=== PATIENT | female | born 1985 | race Caucasian/White ===

== ENCOUNTER 2020-06-16 20:00 | Emergency (ER) | payer OTHER, SELFPAY ==
--- NOTE | ~2020-06-16 | CT_ITS ---
EXAMINATION: CT abdomen pelvis w con INDICATION: Right upper quadrant pain TECHNIQUE: Computed tomographic images of the abdomen and pelvis were obtained after the administrati on of 100 cc of Omnipaque 350 intravenous contrast. The dose-length product (DLP) was 188.82 mGy-cm. Automated exposure control and iterative reconstruction technique were employed. COMPARISON: None available FINDINGS: The lung bases are clear. The heart size is normal. There is a 2 cm cyst of the left hepati c lobe. Hemangiomas of the right hepatic lobe measure up to 2.2 cm. The spleen, pancreas, gallbladder , and adrenal glands are normal. A 6 mm hypoattenuating lesion of the right kidney is too small to ch aracterize but likely represents a cyst. The left kidney is unremarkable. No pathologically enlarged abdominal or pelvic lymph nodes are identified. There is no free intraperitoneal gas or evidence of b owel obstruction. The appendix is normal. An IUD is present in the uterus in expected position. IMPRESSION: 1. No CT correlate for the patient's symptoms. Reviewed, dictated and finalized at location [facility]. [employer]
[2020-06-16 20:03] VITALS: BP 137/92; PULSE 93; RESP 18; TEMP 35.7; O2SAT 99
[2020-06-16 20:18] LABS: Basophils Absolute Auto 0.1 K/mm3 (0.0-0.1); Basophils Percent Auto 0.8 % (0.2-1.2); Eosinophils Absolute Auto 0.1 K/mm3 (0-0.3); Eosinophils Percent Auto 1.1 % (0-4.4); Hematocrit 39.2 % (37.0-47.0); Hemoglobin 12.9 g/dL (12.0-15.0); Immature Granulocyte Absolute 0.02 K/mm3 (0.00-0.031); Immature Granulocyte Percent A 0.3 % (0-0.5); Lymphocytes Absolute Auto 1.79 K/mm3 (0.9-3.2); Lymphocytes Percent Auto 27.1 % (18.3-44.2); Mean Corpuscular HGB Conc 32.9 g/dl (32-36); Mean Corpuscular Hemoglobin 31.5 pg (26-34); Mean Corpuscular Volume 95.6 fl (80-100); Mean Platelet Volume 10.3 fl (7.4-10.4); Monocytes Absolute Auto 0.7 K/mm3 (0.1-0.6); Monocytes Percent Auto 11.1 % (2.6-8.5); Neutrophils Absolute Auto 3.9 K/mm3 (1.3-6.7); Neutrophils Percent Auto 59.6 % (45.5-73.1); Platelet Count Result 285 k/mm3 (150-375); Red Cell Distribution Width 12.7 % (11.5-14.5); White Blood Count 6.6 K/mm3 (4.5-10.0)
[2020-06-16 22:03] LABS: Alanine Aminotransferase 11 U/L (4-35); Albumin Level 4.1 g/dL (3.5-5.1); Alkaline Phosphatase 44 U/L (38-126); Anion Gap 5 mmol/L (8-16); Aspartate Amino Transferase 23 U/L (14-36); Bilirubin,Total 0.5 mg/dL (0.2-1.3); Blood Urea Nitrogen 12 mg/dL (7-17); Calcium 8.8 mg/dL (8.4-10.2); Carbon Dioxide 28 mmol/L (22-30); Chloride 105 mmol/L (98-107); Estimated CRCL calculation 59 ml/min; Estimated Glomerular Filt Rate > 60; Glucose 83 mg/dL (65-105); Lipase 92 U/L (23-300); Potassium 3.8 mmol/L (3.4-5.0); Sodium 138 mmol/L (137-145)
--- NOTE | 2020-06-16 22:48 | ED.GENADULT ---
HPI - General Adult General Chief complaint: Abdominal Pain Stated complaint: abd pain Time Seen by Provider: 06/16/20 21:27 History of Present Illness HPI narrative: Patient is a 34-year-old female who presents ER with upper abdominal pain. Ongoing intermittently over the last week. [place] like hunger pains in the epigastrium initially that would worsen when she would eat. She has tried omeprazole over the last day without relief and had no relief with Tums last night. She gets some nausea associate with her pain. No radiation of the pain. Has history of gallbladder sludge during her in the past. No fevers or chills or sweats. Related Data Allergies Allergy/AdvReac Type Severity Reaction Status Date / Time escitalopram Allergy Severe CHEST PAIN. Verified 03/10/19 19:15 cephalexin AdvReac Severe DIARRHEA Verified 03/10/19 19:15 Review of Systems Review of Systems: All systems reviewed & are unremarkable except as noted in HPI and below Constitutional: Constitutional: Denies chills, Denies fever(s) and Denies weakness Gastrointestinal: Gastrointestinal: Reports abdominal pain, Reports heartburn, Denies diarrhea, Reports nausea and Denies vomiting Genitourinary: Genitourinary: Denies nocturia, Denies dysuria and Denies flank pain PMFSH Past Medical History Medical History (Updated 06/17/20 @ 00:21 by Lenin Le MD) Anemia Anxiety Arthritis Asthma Chronic back pain Eczema Finger fracture, left GERD (gastroesophageal reflux disease) Hypothyroid IBS (irritable bowel syndrome) IUD (intrauterine device) in place Nasal bone fracture Surgical History Surgical History (Updated 03/10/19 @ 19:25 by Linda Kelley) History of lumpectomy History of nasal surgery Social History Social History (Updated 03/10/19 @ 19:25 by Linda Kelley) Smoking status: Never smoker Exam Narrative: Exam Narrative: GENERAL: Well-appearing, well-nourished, and in no acute distress. HEAD: Normocephalic, atraumatic. CHEST: Clear to auscultation. No respiratory distress. HEART: Regular rate and rhythm. Normal peripheral pulses. ABDOMEN: Soft, right upper quadrant tenderness with Lane sign, nondistended. EXTREMITIES: Normal range of motion. No edema. SKIN: Warm, dry, no rash. NEURO: Alert and oriented x3. PSYCH: Normal mood and affect. Course Course Emergency Course: Patient resting comfortably. Informed of results. Recommend Protonix twice daily in case she is developing an ulcer. Recommend follow-up with PCP with possible outpatient ultrasound for further evaluation gallbladder. Low-fat diet at home. Vital Signs Vital signs: Vital Signs Temperature 96.2 F L 06/16/20 20:03 Pulse Rate 93 06/16/20 20:03 Respiratory Rate 18 06/16/20 20:03 Blood Pressure 137/92 H 06/16/20 20:03 Pulse Oximetry 99 06/16/20 20:03 Temperature 96.2 F L 06/16/20 20:03 Pulse Rate 93 06/16/20 20:03 Respiratory Rate 18 06/16/20 20:03 Blood Pressure 137/92 H 06/16/20 20:03 Pulse Oximetry 99 06/16/20 20:03 Medical Decision Making Vital Signs Vital Signs: Vital Signs Temperature 96.2 F L 06/16/20 20:03 Pulse Rate 93 06/16/20 20:03 Respiratory Rate 18 06/16/20 20:03 Blood Pressure 137/92 H 06/16/20 20:03 Pulse Oximetry 99 06/16/20 20:03 Temperature 96.2 F L 06/16/20 20:03 Pulse Rate 93 06/16/20 20:03 Respiratory Rate 18 06/16/20 20:03 Blood Pressure 137/92 H 06/16/20 20:03 Pulse Oximetry 99 06/16/20 20:03 Lab Data Result diagrams: 06/16/20 20:12 06/16/20 21:40 Labs: Lab Results 06/16/20 06/16/20 06/16/20 Range/Units 20:12 21:40 23:49 WBC 6.6 (4.5-10.0) K/mm3 RBC 4.10 L (4.2-5.4) M/mm3 Hgb 12.9 (12.0-15.0) g/dL Hct 39.2 (37.0-47.0) % MCV 95.6 (80-100) fl MCH 31.5 (26-34) pg MCHC 32.9 (32-36) g/dl RDW 12.7 (11.5-14.5) % Plt Count 285 (150-375) k/mm3 MPV 10.3 (7.4-10.4)
[2020-06-16] MEDS: MORPHINE SULFATE (*CRX) 4 MG/ML INJ IV PUSH (23:39)
[2020-06-16] MEDS: ONDANSETRON INJ 4 MG/2 ML VIAL IV PUSH (23:39)
[2020-06-16 23:58] LABS: Add Urine Microscopic? YES; Appearance Urine Clear (Clear); Bilirubin Urine Negative (Negative); Blood Urine 2+ (Negative); Color Urine Straw (Yellow); Glucose Urine UA Negative (Negative); Ketones Urine Negative (Negative); Leukocyte Esterase Ur Negative LEU/UL (Negative); Nitrate Urine Negative (Negative); Protein Urine Negative (Negative); RBC Urine 0-2 /hpf (0-2); Squamous Epithelial Cell Urine Rare /hpf (Few); Urobilinogen Urine Negative mg/dL (<2.0); WBC Urine 0-3 /hpf
[2020-06-17 00:03] LABS: Specific Grav Ur 1.048 (1.001-1.035)
[2020-06-17 00:56] VITALS: BP 111/74; PULSE 74; RESP 18; O2SAT 98
== END 2020-06-17 00:58 | disposition home or self-care (01) ==
PROVIDERS: Emergency Medicine; Emergency Provider Emergency Medicine
DX: R10.13 Epigastric pain (principal); M19.90 Unspecified osteoarthritis, unspecified site; J45.909 Unspecified asthma, uncomplicated; K21.9 Gastro-esophageal reflux disease without esophagitis; E03.9 Hypothyroidism, unspecified; K58.9 Irritable bowel syndrome, unspecified; Z97.5 Presence of (intrauterine) contraceptive device; Z86.2 Personal history of diseases of the blood and blood-forming organs and certain disorders involving the immune mechanism
CPT/HCPCS: 36415; 74177; 80053; 81001; 83690; 85025; 96374; 96375; 99284; J2270; J2405; Q9967

== ENCOUNTER 2022-11-30 16:27 | Emergency (ER) | payer OTHER, SELFPAY ==
[2022-11-30 16:55] VITALS: BP 107/79; PULSE 77; RESP 18; TEMP 36.6; O2SAT 100
--- NOTE | 2022-11-30 17:19 | ED.LOWEXIN ---
HPI - Extremity Injury (Lower) General Chief Complaint: Extremity Injury, Lower Stated Complaint: Strained muscle in right leg Time Seen by Provider: 11/30/22 17:06 Source: patient and RN notes reviewed Mode of arrival: ambulatory Limitations: no limitations History of Present Illness HPI Narrative: Patient presents today complaining of posterior right leg pain. She was in a pool on a raft chair when she fell off. As she fell, she strained the posterior thigh and calf. Injury occurred 1.5 hours prior to exam. She reports some tingling her foot. Currently rates her pain 7/10, which increases with movement. She has tried no medication for symptoms prior to arrival. Related Data Home Medications Medication Instructions Recorded Confirmed levothyroxine 75 mcg tablet 75 mcg PO DAILY 11/30/22 11/30/22 sodium, calcium, magnesium, 0.5 g PO DIRECTED 11/30/22 11/30/22 potassium oxybates 0.5 gram/mL oral soln (Xywav) Allergies Allergy/AdvReac Type Severity Reaction Status Date / Time escitalopram Allergy Severe CHEST PAIN. Verified 11/30/22 17:00 cephalexin AdvReac Severe DIARRHEA Verified 11/30/22 17:00 Review of Systems Review of Systems: CONSTITUTIONAL: Denies body aches, fever, chills, or sweats. EYES: Denies visual changes, redness, or discharge. ENT: Denies rhinorrhea, congestion, sore throat, or otalgia. CARDIOVASCULAR: Denies chest pain, palpitations, or edema. RESPIRATORY: Denies cough or dyspnea. GASTROINTESTINAL: Denies abdominal pain, nausea, vomiting, or diarrhea. GENITOURINARY: Denies dysuria or hematuria. SKIN: Denies rash, itching, or wounds. MUSCULOSKELETAL: Denies back pain, joint pain. + right leg pain NEUROLOGIC: Denies headache, numbness, or weakness.+ right foot tingling PSYCH: Denies depression or anxiety. [facility] Past Medical History Medical History Anemia Anxiety Arthritis Asthma Chronic back pain Eczema Finger fracture, left GERD (gastroesophageal reflux disease) Hypothyroid IBS (irritable bowel syndrome) IUD (intrauterine device) in place Nasal bone fracture Surgical History Surgical History History of lumpectomy History of nasal surgery Social History Social History Smoking status: Never smoker Comments At time of signature, I have reviewed and agree with nursing past medical, surgical, social and family history unless otherwise noted. Please see nursing chart for further information. There is no relevant family history pertinent to the presenting complaint Exam Narrative: GENERAL: Well-appearing, well-nourished, and in no acute distress. HEAD: Normocephalic, atraumatic. EYES: EOMI. No redness or drainage. Conjunctivae normal. ENT: Mucous membranes pink and moist. NECK: Normal AROM. CHEST: No respiratory distress. EXTREMITIES:Right leg: Soft tissue tenderness of the posterior upper leg that extends to the calf. Pain increases with movement and leg. No edema noted. No ecchymosis or edema noted. Distal sensation intact in all 5 toes. Capillary refill normal. Pedal pulse normal. No tenderness to the buttocks or back. SKIN: Warm, dry, no rash. Capillary refill normal. Normal skin turgor. NEURO: No focal deficits. Alert and oriented x3. Gait steady. PSYCH: Normal affect. No signs of depression or anxiety. Course Course Level of Care: Express Care Visit Vital Signs Vital signs: Vital Signs Temperature 97.8 F 11/30/22 16:55 Pulse Rate 77 11/30/22 16:55 Respiratory Rate 18 11/30/22 16:55 Blood Pressure 107/79 11/30/22 16:55 Pulse Oximetry 100 11/30/22 16:55 Oxygen Delivery Room Air 11/30/22 16:55 Temperature 97.8 F 11/30/22 16:55 Pulse Rate 77 11/30/22 16:55 Respiratory Rate 18 11/30/22 16:55 Blood Pressure 107/79
== END 2022-11-30 17:20 | disposition home or self-care (01) ==
PROVIDERS: Emergency Provider Nurse Practitioner
DX: S86.111A Strain of other muscle(s) and tendon(s) of posterior muscle group at lower leg level, right leg, initial encounter (principal); W19.XXXA Unspecified fall, initial encounter; Y93.11 Activity, swimming; M19.90 Unspecified osteoarthritis, unspecified site; K21.9 Gastro-esophageal reflux disease without esophagitis; E03.9 Hypothyroidism, unspecified
CPT/HCPCS: 99213; G0463

== ENCOUNTER 2025-01-26 08:45 | Emergency (ER) | payer OTHER, SELFPAY ==
[2025-01-26 09:09] VITALS: BP 119/86; PULSE 85; RESP 16; TEMP 36.8; O2SAT 100
--- NOTE | 2025-01-26 09:19 | ED_ITS ---
HPI - General Adult General Chief complaint: Upper Respiratory Infection Stated complaint: SORE THROAT/COUGH/HEADACHE Source: patient Mode of arrival: ambulatory Limitations: no limitations History of Present Illness HPI narrative: Patient presents for evaluation of sore throat for the last 2 days. She also reports a headache, cough, and fatigue. No fever, chills, nausea, vomiting, diarrhea. She does not smoke. She has not taken any medication to assist with her symptoms. Both of her sons are being evaluated here for similar symptoms. Related Data Home Medications ?Medication ?Instructions ?Recorded ?Confirmed ?Last Taken ?Type levothyroxine 75 mcg tablet 75 mcg PO DAILY 11/30/22 1 Unknown History sodium, calcium, magnesium, 0.5 g PO DIRECTED 11/3001/26/25 Unknown History potassium oxybates 0.5 gram/mL oral soln (Xywav) Allergies Allergy/AdvReac Type Severity Reaction Status Date / Time escitalopram Allergy Severe CHEST PAIN. Verified 01/26/25 09:00 cephalexin AdvReac Severe DIARRHEA Verified 01/26/25 09:00 Review of Systems Review of Systems: CONSTITUTIONAL: Reports fatigue. Denies fever, chills, or sweats. EYES: Denies visual changes, redness, or discharge. ENT: Reports sore throat. Denies rhinorrhea, congestion, or otalgia. CARDIOVASCULAR: Denies chest pain, palpitations, or edema. RESPIRATORY: Reports cough. Denies dyspnea. GASTROINTESTINAL: Denies abdominal pain, nausea, vomiting, or diarrhea. GENITOURINARY: Denies dysuria or hematuria. SKIN: Denies rash or itching. MUSCULOSKELETAL: Denies back pain, joint pain, or myalgia. NEUROLOGIC: Reports headache. Denies numbness, dizziness, or weakness. PSYCHIATRIC: Denies anxiety or depression. [facility] Past Medical History Medical History Rheumatoid arthritis Eczema Anemia Anxiety Chronic back pain Nasal bone fracture Finger fracture, left Arthritis IUD (intrauterine device) in place GERD (gastroesophageal reflux disease) IBS (irritable bowel syndrome) Asthma Hypothyroid Surgical History Surgical History History of lumpectomy History of nasal surgery Family History Family History Mother Family history non-contributory Social History Social History Smoking status: Never smoker Substance use: never Living arrangements: with family Gender identity (if verbalized by the patient): Female Sexual Orientation (if Verbalized by the Patient): Straight or Heterosexual Spiritual care concerns: No Exam Narrative: GENERAL: Well-appearing, well-nourished, and in no acute distress. HEAD: Normocephalic, atraumatic. EYES: PERRLA and EOMI. ENT: Nares clear, no rhinorrhea or epistaxis. Mucous membranes moist. Oropharynx without tonsillar hypertrophy exudate or other lesions. Bilateral TMs pearly [place] nonbulging NECK: Supple. No adenopathy or masses. No carotid bruits or JVD CHEST: Clear to auscultation. No respiratory distress. No wheezes rales or rhonchi HEART: Regular rate and rhythm. No murmur heard. Normal peripheral pulses. ABDOMEN: Soft, nontender, nondistended, normal active bowel sounds. EXTREMITIES: Normal range of motion. No edema. SKIN: Warm, dry, no rash. NEURO: No focal deficits. Alert and oriented x3. PSYCH: Normal mood and affect. Course Course Emergency Course: This is a 39-year-old female who presented for evaluation of sore throat. Rapid strep negative. Send throat culture. Exam consistent with viral pharyngitis. Increase hydration. [id number] agents for symptom management. Follow up with primary provider. Go to the ER for worsening symptoms. Patient in agreement with plan of care. Level of Care: Express Care Visit Vital Signs Vital signs: Vital Signs Temperature 36.8 C 01/26/25 09:09 Pulse Rate 85 01/26/25 09:09 Respiratory Rate 16 01/26/25 09:09 Blood Pressure 119/86 01/26/25 09:09 Pulse Oximetry 100 01/26/25 09:09 Temperature 36.8 C 01/26/25 09:09 Pulse Rate 85 01/26/25 09:09 Respiratory Rate 16 01/26/25 09:09 Blood Pressure 119/86 01/26/25 09:09 Pulse Oximetry 100 01/26/25 09:09 Medical Decision Making Vital Signs Vital Signs: Vital Signs Temperature 36.8 C 01/26/25 09:09 Pulse Rate 85 01/26/25 09:09 Respiratory Rate 16 01/26/25 09:09 Blood Pressure 119/86 01/26/25 09:09 Pulse Oximetry 100 01/26/25 09:09 Temperature 36.8 C 01/26/25 09:09 Pulse Rate 85 01/26/25 09:09 Respiratory Rate 16 01/26/25 09:09 Blood Pressure 119/86 01/26/25 09:09 Pulse Oximetry 100 01/26/25 09:09 Lab Data Labs: Lab Results 01/26/25 Range/Units 09:22 POC Grp A Strep Screen Negative (Negative) Discharge Plan Discharge Clinical Impression: Pharyngitis Patient Disposition: Home Condition: Stable Instructions: Antibiotic Form, Pharyngitis (ED) Patient Language: Luxembour[place] Prescriptions: No Action levothyroxine 75 mcg tablet 75 mcg PO DAILY Xywav 0.5 gram/mL solution 0.5 g PO DIRECTED Follow-up/Referrals: [facility] [Other] Stand Alone Forms: Work/School Release IP Time of Disposition: 09:34
[2025-01-26 09:24] LABS: EDSTREPNEGPOS1 Negative (Negative)
== END 2025-01-26 09:43 | disposition home or self-care (01) ==
PROVIDERS: Emergency Provider Nurse Practitioner
DX: J02.9 Acute pharyngitis, unspecified (principal); E03.9 Hypothyroidism, unspecified; J45.909 Unspecified asthma, uncomplicated; K21.9 Gastro-esophageal reflux disease without esophagitis; M19.90 Unspecified osteoarthritis, unspecified site; M06.9 Rheumatoid arthritis, unspecified; Z97.5 Presence of (intrauterine) contraceptive device
CPT/HCPCS: 87081; 87880; 99213; G0463